=== PATIENT | female | born 1940 | race Caucasian/White ===

== ENCOUNTER 2017-06-21 07:30 | Inpatient (IN) ==
[2017-07-19] MEDS ORDERED: TRANEXAMIC ACID 1,000 MG in NS 100 ML IV ONE ×2 (06:00→07:00)
[2017-07-19] MEDS ORDERED: LIDOCAINE 1% (10mg/ml) 2mL INJ PF SDV ID ONE (06:00)
[2017-07-19] MEDS ORDERED: MELOXICAM 15 MG TABLET PO ONE (06:00)
[2017-07-19] MEDS ORDERED: METOCLOPRAMIDE 10mg/2ml INJECTION IVP ONE (06:00)
[2017-07-19] MEDS ORDERED: NOZIN NASAL SWAB NAS ONE ×2 (06:00→17:06)
[2017-07-19] MEDS ORDERED: ONDANSETRON 4 MG/2 ML INJECTION IVP ONE (06:00)
[2017-07-19] MEDS ORDERED: FAMOTIDINE PB 20 MG/50 ML BAG IV ONE (06:00)
[2017-07-19] MEDS ORDERED: ACETAMINOPHEN 500 MG TABLET PO ONE (06:00)
[2017-07-19] MEDS ORDERED: EPINEPHrine PF 0.25 MG, BUPIVACAINE 0.25% PF 30 ML, MORPHINE SULFATE 15 MG, KETOROLAC I... OPSITE ONE (08:00)
--- OUTSIDE RECORDS SUMMARY | 2017-07-19 10:23 | External Medical Summary | Summary of Care ---
:1940 Author Name Vladimir Mireles Address [address] [facility] Unavailable [place], [place] [id number] Care Team Providers Name Role Phone Azam Stokes M.D. Unavailable Unavailable Renaldo Hollis, Froylan Unavailable Unavailable Azam Stokes Primary Care Provider Unavailable Unavailable Unavailable Unavailable Functional Status Functional Status Health Issues Name Dates Details Functional status health issues are not documented Status: Cognitive Status Health Issues Name Dates Details Cognitive status health issues are not documented Status: Problems Name Dates Details Lower back pain (724.2, M54.5) Status: Active Joint pain, knee (719.46, M25.569) Status: Active Ankle joint pain (719.47, M25.579) Status: Active Memory loss (780.93, R41.3) Status: Active Involuntary trembling (781.0, R25.1) Status: Active Abnormal gait (781.2, R26.9) Status: Active Urinary incontinence (788.30, R32) Status: Active Anemia (285.9, D64.9) Status: Active Osteoarthritis (715.90, M19.90) Status: Active Essential and other specified forms of tremor (333.1, R25.1) Status: Active Raynauds phenomenon (443.0, I73.00) Status: Active Hypocalcemia (275.41, E83.51) Status: Active Muscle spasm (728.85, M62.838) Status: Active Osteoarthritis, localized, knee (715.36, M17.9) Status: Active Pre-operative exam (V72.84, Z01.818) Status: Active Bursitis of hip (726.5, M70.70) Status: Active Vitamin B12 deficiency (266.2, E53.8) Status: Active Arthralgia of multiple sites (719.49, M25.50) Status: Active Pre-operative general physical examination (V72.83, Z01.818) Status: Active Vaginal Discharge (623.5, N89.8) Status: Active Hematuria (599.70, R31.9) Status: Active Left knee pain (719.46, M25.562) Status: Active Alopecia (704.00, L65.9) Status: Active Frequent loose stools (787.91, R19.7) Status: Active Anxiety (300.00, F41.9) Status: Active Low back pain (724.2, M54.5) Status: Active Abdominal pain (789.00, R10.9) Status: Active Hip pain (719.45, M25.559) Status: Active Medications Name Dates Details Primidone 250 MG Oral Tablet TAKE 1/2 TABLET TWICE DAILY. Quantity: 15 Refills: 0 Azam Stokes M.D. Started 28-Jun-2011 ActiveAcetaminophen-Codeine #3 300-30 MG Oral Tablet TAKE 1 TABLET BY MOUTH THREE TIMES DAILY FOR PAIN Quantity: 30 Refills: 0 Froylan Macario M.D. Started 03-Nov-2011 ActiveDiphenoxylate-Atropine 2.5-0.025 MG Oral Tablet TAKE 1 Q 8HRS PRN Quantity: 90 Refills: 0 Azam Stokes M.D. Started 12-Aug-2012 ActivePropranolol HCl ER 120 MG Oral Capsule Extended Release 24 Hour TAKE 1 CAPSULE DAILY. Quantity: 30 Refills: 4 Started 11-Jun-2013 ActiveClonazePAM 0.5 MG Oral Tablet TAKE 1 TABLET BY MOUTH EVERY 12 HOURS. MUST LAST 30 DAYS Quantity: 60 Refills: 0 Azam Stokes M.D. Started 26-Dec-2013 ActiveSpironolactone 25 MG Oral Tablet TAKE 1 TABLET DAILY. Quantity: 30 Refills: 3 Azam Stokes M.D. Started 26-Dec-2013 ActiveVoltaren 1 % Transdermal Gel APPLY 4 GM OF GEL TO AFFECTED AREA TWICE DAILY. DO NOT APPLY MORE THAN 16 GM DAILY TO ANY ONE AFFECTED JOINT. Quantity: 1 Refills: 4 Azam Stokes M.D. Started 26-Dec-2013 [id number] GM Tube Amitriptyline HCl - 25 MG Oral Tablet Take 1 tablet by mouth at bedtime Quantity: 30 Refills: 5 Azam Stokes M.D. Started 13-Jan-2014 ActiveViibryd 40 MG Oral Tablet Take one tablet daily Quantity: 30 Refills: 3 Azam Stokes M.D. Started 23-Jun-2013 ActiveAmitriptyline HCl - 50 MG Oral Tablet TAKE ONE TABLET BY MOUTH EVERY NIGHT AT BEDTIME Quantity: 30 Refills: 3 Azam Stokes M.D. Started Active Allergies and Adverse Reactions Name Dates Details No Known Drug Allergies Status: Active Past Medical History Name Dates Details History of Colon Cancer (V10.05) Status: Resolved History of Concussion (V15.52) Status: Resolved History of depression (V11.8, Z86.59) Status: Resolved History of fracture of hip (V15.51, Z87.81) Status: Resolved History of headache (V13.89, Z87.898) Status: Resolved History of sleep apnea (V13.89, Z87.898) Status: Resolved Procedures Procedure Dates Details History of Cholecystectomy History of Appendectomy History of Partial Colectomy History of Hysteroscopy Completed:23-Aug-2011 History of Hip Surgery History of Colonoscopy (Fiberoptic) History of Reported Hx Of Knee Replacement - Right Procedures not documented Immunization Name Dates Details Immunizations not documented Family History Unknown Family Member Name Dates Details Family history of Diabetes Mellitus (V18.0) Comments: Family History Status: Active Family history of Hypertension (V17.49) Comments: Family History Status: Active Family history of Reported Family History Of Heart Disease Comments: Family History Status: Active Family history of Colon Cancer (V16.0) Comments: Family History Status: Active Grandfather Name Dates Details Family history of Stroke Syndrome (V17.1) Status: Active Grandmother Name Dates Details Family history of Alzheimer Disease Status: Active Mother Name Dates Details Family history of (Female) Genital Cancer (V16.40) Status: Active Family history of Ovarian Cancer (V16.41) Status: Active Father Name Dates Details Family history of Acute Myocardial Infarction (V17.3) Status: Active Social History Name Dates Details Smoking StatusNever smoker Vital Signs Date Test Result Details No Known Vitals to report Results Date Description Value Details Results not documented Plan of Care Planned Observations Name Dates Details Planned Goals not documented Goal Planned Encounters Appointment; Provider: Miah Macias On 29-Jan-2012 11:00 Appointment; Provider: Benny Li On 23-Aug-2011 10:00 Instructions Instructions not documented Encounters Appointment; Paul Chavez On 04-Aug-2014 Encounter Diagnosis: Problem not documented 14:15 Appointment; Vladimir Domingo On 04-Aug-2014 Encounter Diagnosis: Problem not documented 13:30 Appointment; Azam tSokes On 26-Dec-2013 Encounter Diagnosis: Problem not documented 13:45 Appointment; Froylan Macario On 11-Dec-2013 Encounter Diagnosis: Problem not documented 12:30 Appointment; zAam Stokes On 22-Jul-2013 Encounter Diagnosis: Problem not documented 10:00 Appointment; Azam Stokes On 23-Jun-2013 Encounter Diagnosis: Problem not documented 14:15 Appointment; Miah Steven On 11-Jun-2013 Encounter Diagnosis: Problem not documented 13:15 Appointment; Miah Macias On 15-May-2013 Encounter Diagnosis: Problem not documented 13:15 Appointment; Froylan Macario On Encounter Diagnosis: Problem not documented 12:15 Appointment; Azam Stokes On Encounter Diagnosis: Problem not documented 09:45 Appointment; Azam Stokes On Encounter Diagnosis: Problem not documented 09:30 Appointment; Tomy Dela Cruz On 19-Feb-2013 Encounter Diagnosis: Problem not documented 13:45 Appointment; Froylan Macario On 25-Dec-2012 Encounter Diagnosis: Problem not documented 12:45 Appointment; Azam Stokes On 25-Dec-2012 Encounter Diagnosis: Problem not documented 11:45 Appointment; Azam Stokes On 18-Dec-2012 Encounter Diagnosis: Problem not documented 10:30 Appointment; Froylan Macario On 18-Dec-2012 Encounter Diagnosis: Problem not documented 09:30
[2017-07-19 11:00] VITALS: BMI 35.6
[2017-07-19] MEDS: NS 1,000 ML IV SCH ×3 (11:45→17:12)
[2017-07-19] MEDS ORDERED: CEFAZOLIN 1 G INJECTION IVP ONE (12:30)
[2017-07-19] MEDS ORDERED: VANCOMYCIN 1,000 MG INJECTION ONE (13:34)
--- NOTE | 2017-07-19 13:44 | Anesthesia Preoperative Report ---
Anesthesia Preoperative Record - Date and Time Date: 07/19/17 Preoperative Diagnosis: Lt TKA M17.12 Proposed Procedure: Left TOtal Knee NPO Since Date: 07/19/17 NPO Since Time: 00:00 Allergies/Adverse Reactions: Allergies Allergy/AdvReac Type Severity Reaction Status Date / Time naproxen Allergy Unknown patient Verified 06/07/17 13:15 denies midazolam AdvReac Intermediate LOST 3 Verified 06/07/17 13:15 WEEKS OF MEMORY - Vital Signs Vital Signs: Temperature 98.6 F 07/19/17 11:00 Pulse Rate 56 L 07/19/17 11:26 Respiratory Rate 17 07/19/17 11:00 Blood Pressure 132/64 07/19/17 11:00 Pulse Oximetry 96 07/19/17 11:00 Height and Weight: Height 5 ft 1.5 in Weight 87.1 kg Body Mass Index 35.6 - Medications Inpatient Medications: Current Medications Sodium Chloride (Normal Saline) 1,000 mls @ 50 mls/hr IV .Q20H DAVION Last Admin: 07/19/17 11:45 Dose: 50 mls/hr Sodium Chloride (Iv Flush) 10 - 80 ml IV PRN PRN PRN Reason: Flushing Home Medications: Home Medications Medication Instructions Recorded Confirmed Type Multivitamin [Multi-Day Vitamins] 1 tab PO DAILY #30 tab 03/06/16 07/19/17 History LORazepam [Lorazepam] 1 mg PO HS 05/17/17 07/19/17 History Lexapro (escitalopram) 10 mg tablet 10 mg PO DAILY tab 06/07/17 07/19/17 History colestipol 1 gram tablet 1 g PO BID 06/07/17 07/19/17 History Lactobacillus Acidophilus 1 each PO DAILY 07/13/17 07/19/17 History [Probiotic] Sulfamethox/Tmp [Bactrim Ds] 1 tab PO BID 07/13/17 07/19/17 History Primidone [Mysoline] 250 mg PO TID 07/19/17 07/19/17 History Is Patient on Beta Cadence?: No - Medical History Respiratory: Reports: Sleep Apnea (questionable) Gastrointestional: Reports: Morbid Obesity Neuro/Musculoskeletal: Reports: Other (essential tremor) Other History: Reports: Anesthesia Reactions (adverse reaction to versed) - Surgical History HEENT Surgeries: Reports: Eye Surgery (Dario cataract ext with IOL implant) GI Surgery/Treatments: Reports: Colon Resection (COLON CA) Musculoskeletal Surgery/Tx: Reports: Orthopedic Surgery (ORIF Lt hip), Total Knee Replacement (Rt TKA), Other (nerve decompression in knee) Anesthesia Reactions: None Hx Family Anesthesia Reaction: No History of Motion Sickness: No - Social History Smoking Status: Never smoker Substance Use Type: does not use - Pertinent Findings Laboratory: CBC and BMP 07/19/17 11:05 07/19/17 11:05 BMP 07/19/17 11:05 Sodium 142 Potassium 4.0 Chloride 109 H Carbon Dioxide 23 BUN 30.0 H Creatinine 1.3 H Glucose 95 Calcium 8.8 Liver Function 07/19/17 Range/Units 11:05 Total Bilirubin 0.40 (0.20-1.30) MG/DL AST 25 (14-36) U/L ALT 30 (9-52) U/L Alkaline Phosphatase 71 (38-126) U/L Albumin 4.1 (3.5-5.0) G/DL EKG: Sinus Bradycardia - Physical Exam Respiratory Exam: Present: lungs clear, bilateral breath sounds equal Cardiovascular Exam: Present: regular rate and rhythm, no murmur - Airway Assessment Mallampati Score: III TMD: 2 Fingerbreadths Neck Extension: fair Overall Assessment: may be difficult intubation - ASA ASA Score: 2 - Plan Anesthesia: Neuroaxial Regional/Trunk Block: Spinal - Discussion Discussion: Discussed risks/options/alternatives of anesthesia and questions answered. Patient consents. Nursing pain assessment noted. Present for Discussion: family member Attestation Statement: Prior to the delivery of any anesthetic medication, I examined the patient, developed the plan, obtained the patient's consent and discussed the risk and benefits of the procedure with the patient/guardian. - Additional Information Seen by Anesthesia: Yes
[2017-07-19] MEDS ORDERED: VANCOMYCIN 1,000 MG INJECTION IAR ONE (14:38)
[2017-07-19] MEDS ORDERED: HYDROMORPHONE 2 MG/ML INJECTION ONE (15:21)
--- NOTE | 2017-07-19 15:47 | Operative Note ---
- Procedure Preoperative Diagnosis: Left knee primary degenerative joint disease Postoperative Diagnosis: Same as preoperative diagnosis. Surgeon: Mike Smith MD Robot Designer: Earnest Melendez Complications: None. Anesthesia: Spinal. Estimated Blood Loss: See Anesthesia Record. Fluids: Please see Anesthesia Record. Description of Procedure: Mrs. De La Cruz and her left knee were identified and marked in the preoperative holding area. She was brought back to the operating suite after a saphenous nerve block was placed in the preoperative holding area. Spinal anesthetic was administered and she was placed supine on the operating table. The left lower extremity was prepped and draped in my normal sterile fashion. Timeout was performed. The [employer] robot was used during the surgery. She had a varus deformity with hyperextension of 4 degrees. A standard anterior midline incision followed by medial parapatellar arthrotomy was performed. Anterior fat pad and meniscus were removed. The patella was resurfaced to a size 29. Tibial and femoral arrays were placed both within the original incision. Checkpoints were then placed both in the femur and the tibia. The bone was then registered with the [employer] robot. Osteophytes were removed and gaps were captured both 90 and 0 with correction. Because of her hyperextension we manipulated the components using the software to obtain 16 mm gap in extension and 80 mm gaps in flexion. The [employer] robotic arm was then used to assist with the bone cuts. Posterior osteophytes and remaining meniscus were removed. Trial components were placed. We used a 4 femur and a 3 tibia with a 9 mm spacer. She tracked well and was well balanced throughout range of motion. The leg was exsanguinated and the tourniquet inflated to 250 mmHg. The bone was prepared for cementing and components were cemented into place and allowed to cure in extension. The tourniquet was let down and hemostasis obtained with electrocautery. The knee was ranged one more time to ensure good stability, balance and patellar tracking. 1 g of vancomycin powder was then placed into the knee joint. The capsulotomy was then closed with #1 Vicryl. I then left my administrative services assistant to close the subcutaneous tissue with 2-0 Vicryl. Running 4-0 Monocryl will be used in the subcuticular layer. Dermabond will be used on the skin followed by sterile dressing. After drapes are removed patient will be taken to recovery room under the care of anesthesia.
[2017-07-19] MEDS ORDERED: ROPIVACAINE 0.5% (5mg/ml) 30ml INJ ONE (16:11)
--- NOTE | 2017-07-19 16:33 | Anesthesia Procedure Note ---
Peripheral Nerve Blockade - Procedure Physician: Miah Smith MD Date: 07/19/17 Surgical Procedure: Left Total Knee Replacement Discussion: Discussed risks/options/alternatives of anesthesia and questions answered. Patient consents. Nursing pain assessment noted. Block Start: 16:21 Block Stop: 16:24 Blocked Employed: Adductor Canal Indication: Post-Operative Pain Approach: Left Side Confirmed Position: Supine Patient: Consent, Risks/Benefits Discussed, Informed, Post Block Act. Discussed IV Sedation: No Sedation: Awake Initial Vital Signs: Temperature 98.6 F 07/19/17 11:00 Temperature Source Oral 07/19/17 11:00 Pulse Rate 56 L 07/19/17 11:00 Respiratory Rate 17 07/19/17 11:00 Blood Pressure 132/64 07/19/17 11:00 Blood Pressure Mean 86 07/19/17 11:00 Blood Pressure Position Sitting 07/19/17 11:00 Pulse Oximetry 96 07/19/17 11:00 Oxygen Delivery Method 07/19/17 11:00 Post Vital Signs: Temperature 98.6 F 07/19/17 11:00 Pulse Rate 56 L 07/19/17 16:07 Respiratory Rate 15 07/19/17 16:07 Blood Pressure 132/64 07/19/17 11:00 Pulse Oximetry 96 07/19/17 16:07 Initial Pain Pain Score: 0 Post Block Pain Score: 0 Prep: Chlorhexadine/ETOH Ultrasound Used?: Yes - Injectate Ropivacaine (%): 0.5 Ropivacaine (mL): 20 Was Epi 1:200,000 Used?: No Injection: Injection made incrementally with constant monitoring and aspiration every ml
--- NOTE | 2017-07-19 16:36 | Anesthesia Postoperative Note ---
- Date and Time Date: 07/19/17 Time: 16:36 - Status Patient Participated in Evaluation: Patient Participated in Person Vital Signs: Temperature 98.3 F 07/19/17 16:12 Pulse Rate 55 L 07/19/17 16:12 Respiratory Rate 12 07/19/17 16:12 Blood Pressure 149/68 H 07/19/17 16:12 Pulse Oximetry 93 07/19/17 16:12 Respiratory Function: Airway Patent Cardiovascular Function: Regular Pulse EKG: Sinus Rhythm Mental Status: Alert and Oriented Unable to Assess Pain Due to: Patient Sleeping Hydration: IV Infusing Complications During Recover: None Apparent - Follow-Up Instructions Instructions: Per Surgeon
[2017-07-19] MEDS ORDERED: LORazepam 1 MG TABLET PO PRN (17:06)
[2017-07-19] MEDS ORDERED: DiphenhydrAMINE 25 MG CAPSULE PO PRN (17:06)
[2017-07-19] MEDS ORDERED: DiphenhydrAMINE 50 MG/ML INJECTION IVP PRN (17:06)
[2017-07-19] MEDS ORDERED: ONDANSETRON 4 MG/2 ML INJECTION IVP PRN (17:06)
[2017-07-19] MEDS: ACETAMINOPHEN 325 MG TABLET PO SCH ×2 (17:08→23:05)
[2017-07-19] MEDS ORDERED: SALINE FLUSH 10ml SYRINGE IV PRN (20:41)
[2017-07-19] MEDS ORDERED: SENNOSIDES 8.6 MG TABLET PO SCH (21:00)
[2017-07-19] MEDS ORDERED: DEXAMETHASONE 4 MG/ML INJECTION IVP SCH (22:00)
[2017-07-19] MEDS: PRIMIDONE 250 MG TABLET PO SCH (22:58)
[2017-07-19] MEDS: ASPIRIN *EC* 81 MG TABLET PO SCH (23:03)
[2017-07-19] MEDS: TRIHEXYPHENIDYL 2 MG TABLET PO SCH (23:05)
[2017-07-19] MEDS: COLESTIPOL 1 G TABLET PO SCH (23:06)
[2017-07-19] MEDS: DOCUSATE SODIUM 100 MG CAPSULE PO SCH (23:14)
[2017-07-19] MEDS: NOZIN NASAL SWAB NAS SCH (23:15)
[2017-07-19] MEDS: DEXAMETHASONE INJ 10 MG in NS 50 ML IV SCH (23:16)
--- NOTE | 2017-07-19 23:35 | Consult Note ---
<Kenny Alba - Last Filed: 07/19/17 23:29> Consult Information - Data of Consult Consult date: 07/19/17 Requesting Physician: Miah Smith MD Primary Care Provider: Yue Ortiz MD Family Provider: Yue Ortiz MD - Consult Narrative Reason for consult: bradycardia History of present illness: Pleasant 76 y/o WF underwent successful Left TKA today by Dr Smith. She was evaluated preop by anesthesia and tells me recently has not been ill. Nursing notified me that he PA for Dr Smith wanted me to see the patient b/c she has been bradycardic. She reportedly had been in the 40s and nursing described SB with 1st deg AVB on tele. Pt admits to some n/v earlier this eening about 7 pm x 2 that is now resolved but denies syncope presyncope and has been taking Inderal LA for "years" She last took a dose yesterday. Review of anesthesia records indicates this may not have been a known preop med. She takes this for essential tremor. She sees neurology for this therapy, was last seen 6 weeks ago. She also may have had some right sided facial droop around 6 pm lasting 30 seconds noted by her son. He notified nursing but they didn't find a difference. Patient thinks she is speaking more slowly than usual but she usually does speak slowly. She denies focal weakness otherwise and her pain is well controlled right now. She denies hx cardiac issues, no known hx of TIA or stroke or CHF. [facility] Patient Stated Medical History Sleep Apnea Yes: questionable Other GI Yes: hx diverticulitis; currently bowel incontinence; Hx Incontinence Yes: ADULT BRIEF WORN Hx Urinary Tract Infection Yes: states currently has UTI, on Keflex Other Hematologic Yes: states is having prolonged bleeding with minor scrapes (several days) Osteoarthritis Yes Other Musculoskeletal Yes: essential tremor Anesthesia Reactions Yes: adverse reaction to versed Blood Transfusions Yes Depression Yes Post Menopausal Yes Clinic Medical History (Last Reviewed 05/16/17 @ 13:44 by Miah Smith MD) Anxiety (Chronic Medical) Arthritis (Chronic Medical) Cataract (Chronic Medical) Depression (Chronic Medical) GERD (gastroesophageal reflux disease) (Chronic Medical) Tremor (Chronic Medical) Colon cancer (Resolved Medical) Surgical History: cataract, hemicolectomy, appendectomy, cholecystectomy, Lt hip fx, rt TKA,. Lt leg nerve decompression Family History: Family History (Last Reviewed 05/16/17 @ 13:44 by Miah Smith MD) Father HTN (hypertension) Heart attack Diabetes Mother Ovarian cancer - Social History Smoking status: Never smoker Review of Systems All systems PM: 10-point ROS was reviewed, no additional remarkable complaints except Medications Home Medications Medication Instructions Recorded Confirmed Type Multivitamin [Multi-Day Vitamins] 1 tab PO DAILY #30 tab 03/06/16 07/19/17 History Lexapro (escitalopram) 10 mg tablet 10 mg PO DAILY tab 06/07/17 07/19/17 History colestipol 1 gram tablet 1 g PO BID 06/07/17 07/19/17 History Lactobacillus Acidophilus 1 each PO DAILY 07/13/17 07/19/17 History [Probiotic] Sulfamethox/Tmp [Bactrim Ds] 1 tab PO BID 07/13/17 07/19/17 History Primidone [Mysoline] 250 mg PO TID 07/19/17 07/19/17 History Allergies Allergy/AdvReac Type Severity Reaction Status Date / Time naproxen Allergy Unknown patient Verified 06/07/17 13:15 denies midazolam AdvReac Intermediate LOST 3 Verified 06/07/17 13:15 WEEKS OF MEMORY Exam Vital Signs: Temperature 96.7 F L 07/19/17 19:12 Pulse Rate 50 L 07/19/17 20:12 Respiratory Rate 18 07/19/17 17:34 Blood Pressure 127/65 07/19/17 19:12 Pulse Oximetry 100 07/19/17 21:54 Telemetry Rhythm: Sinus Bradycardia, First Degree AV Block Height/Weight/BMI: Height 1.56 m Weight 87.1 kg Body Mass Index 35.6 - Constitutional Present: no acute distress, obese - Routine HEENT Exam Head: Present: normocephalic (wearing some O2) - Routine Respiratory Exam Present: CTA bilaterally. Absent: accessory muscle use, respiratory distress - Routine Cardiovascular Exam Present: S1, S2, no murmur, bradycardia - Routine Abdominal Exam Present: soft, normoactive bowel sounds, non distended, non tender - Routine Extremities Exam Present: edema. Absent: cyanosis, clubbing - Routine Neurological Exam Present: alert, oriented X3, CN II-XII intact speech is slow but fluent. no facial asymmetry noted. arms equally strong with minimal tremor Results - Labs CBC & Chem 7: 07/19/17 11:05 07/19/17 11:05 Assessment and Plan (1) Bradycardia Status: Acute (2) Renal insufficiency Status: Acute (3) Short bowel syndrome Status: Acute (4) Essential tremor Status: Acute (5) [place] (obstructive sleep apnea) Status: Acute (6) Obesity (BMI 30-39.9) Status: Acute (7) Primary osteoarthritis of left knee Status: Acute (8) Slow rate of speech Status: Acute Assessment and Plan: Bradycardia appears asymptomatic and probably related to propranolol plus perhaps nausea induced vagal bradycardia. She is mildly hypoxic that I suspect is atelectasis and have encouraged IS that she is doing. XRay could be ordered in AM if persistent hypoxia. Her renal function is noted, with creat at 1.3, will give 500 cc NS tonight and repeat labs in am. As far as possible facial droop and speech slowed, I did not find focal deficits and suspect from pain meds nausea etc. She takes a number of meds for tremor as well. Will leave further possible TIA workup to medical team in AM but do not think workup at this time indcated. DVT Prophylaxis: SCD's, Lovenox Resuscitation Status: Full Code Hospital Course Summary Disclaimer: The visit summary below is not to be considered part of the above Progress Note. <Moisés Rueda - Last Filed: 07/20/17 20:27> Consult Information - Data of Consult Requesting Physician: Miah Smith MD Primary Care Provider: Yue Ortiz MD Family Provider: Yue Ortiz MD [facility] Patient Stated Medical History Sleep Apnea Yes: questionable Other GI Yes: hx diverticulitis; currently bowel incontinence; Hx Incontinence Yes: ADULT BRIEF WORN Hx Urinary Tract Infection Yes: states currently has UTI, on Keflex Other Hematologic Yes: states is having prolonged bleeding with minor scrapes (several days) Osteoarthritis Yes Other Musculoskeletal Yes: essential tremor Anesthesia Reactions Yes: adverse reaction to versed Blood Transfusions Yes Depression Yes Post Menopausal Yes Clinic Medical History (Last Reviewed 05/16/17 @ 13:44 by Miah Smith MD) Anxiety (Chronic Medical) Arthritis (Chronic Medical) Cataract (Chronic Medical) Depression (Chronic Medical) GERD (gastroesophageal reflux disease) (Chronic Medical) Tremor (Chronic Medical) Colon cancer (Resolved Medical) Family History: Family History (Last Reviewed 05/16/17 @ 13:44 by Miah Smith MD) Father HTN (hypertension) Heart attack Diabetes Mother Ovarian cancer Exam Vital Signs: Temperature 97.8 F 07/20/17 12:21 Pulse Rate 62 07/20/17 12:21 Respiratory Rate 20 07/20/17 12:21 Blood Pressure 104/50 07/20/17 12:21 Pulse Oximetry 97 07/20/17 12:21 Height/Weight/BMI: Height 5 ft 1.5 in Weight 89.6 kg Body Mass Index 35.6 Results - Labs CBC & Chem 7: 07/20/17 04:43 07/20/17 04:43 Assessment and Plan (1) Bradycardia Status: Acute (2) Primary osteoarthritis of left knee Status: Acute (3) Obesity (BMI 30-39.9) Status: Acute (4) [place] (obstructive sleep apnea) Status: Acute (5) Essential tremor Status: Acute (6) Short bowel syndrome Status: Acute (7) Renal insufficiency Status: Acute (8) Slow rate of speech Status: Acute Hospital Course Summary Disclaimer: The visit summary below is not to be considered part of the above Progress Note. Hospital Course: 07/20/17 20:26 [address] and agreed with Dr. Dahl's full consultation note and have included a follow-up note independently
[2017-07-19] MEDS ORDERED: NS 1,000 ML IV SCH (23:45)
[2017-07-20] MEDS: CEFAZOLIN 2 G in NS 100 ML IV SCH ×2 (01:45→09:27)
[2017-07-20] MEDS: NOZIN NASAL SWAB NAS SCH ×2 (06:00→14:24)
[2017-07-20] MEDS: DEXAMETHASONE INJ 10 MG in NS 50 ML IV SCH (06:00)
[2017-07-20] MEDS ORDERED: ESCITALOPRAM 10 MG TABLET PO SCH (09:00)
[2017-07-20] MEDS ORDERED: PROPRANOLOL LA 120 MG CAPSULE PO SCH (09:00)
--- NOTE | 2017-07-20 09:16 | XRay Report ---
EXAM: XR knee LT 2V DATE: 07/19/2017 5:06 PM ENCOUNTER: Initial INDICATION: postoperative image COMPARISON: 05/16/2017, 03/13/2016 TECHNIQUE: AP and lateral views of the knee were obtained. FINDINGS: Postoperative changes of recent left total knee arthroplasty with associated surrounding bandaging and stabilization padding in place which limits fine osseous and soft tissue detail. There appears to be a wound VAC in place. The hardware components appear appropriately aligned without evidence of acute hardware complication. No periprosthetic fracture. Likely postoperative joint effusion. IMPRESSION: Postoperative changes of recent left total knee arthroplasty without evidence of acute hardware complication or periprosthetic osseous abnormality. .
[2017-07-20] MEDS: DOCUSATE SODIUM 100 MG CAPSULE PO SCH (09:25)
[2017-07-20] MEDS: Oxycodone *IR* 5 MG TABLET PO PRN ×2 (09:26→12:17)
[2017-07-20] MEDS: ACETAMINOPHEN 325 MG TABLET PO SCH ×2 (09:26→12:17)
[2017-07-20] MEDS: ASPIRIN *EC* 81 MG TABLET PO SCH (09:26)
[2017-07-20] MEDS: POLYETHYL GLYCOL 3350 17gm PACKET PO SCH ×2 (09:27→09:41)
--- NOTE | 2017-07-20 09:28 | Orthopedic Progress Note ---
Date: Subjective/Severity of Illness: Mrs. De La Cruz is feeling okay. Her pain is controlled. She was bradycardic last night, hospitalist consulted. This AM her pulse is 58 and she denies CP, palpitations, lightheadedness, dizziness. Orthopedic Objective PO Vital signs: Temperature 97.4 F 07/20/17 04:00 Pulse Rate 58 L 07/20/17 04:00 Respiratory Rate 22 07/20/17 04:00 Blood Pressure 102/55 07/20/17 04:00 Pulse Oximetry 93 07/20/17 05:45 Height and Weight: Height 5 ft 1.5 in Weight 197 lb 8.547 oz Body Mass Index 35.6 - Constitutional General Appearance: Present: alert, orientated x3, no acute distress - Respiratory Exam Present: non-labored - Cardiovascular Exam Present: pedal pulses intact Capillary Refill: < 2-3 Seconds - Abdominal Exam Absent: tenderness - Extremities Exam Extremities: Present: pulses intact, calf tenderness - Knee Exam Knee Exam: Present: effusion, painful ROM - Hip Exam Hip Exam: Present: unequal leg length - Surgical Site Incision: Mepilex dressing intact, dressing intact - Integumentary Exam Present: pink, warm, dry - Lymphatic Lymphatic: Absent: lymphedema - Neurological Exam Present: intact to light touch - Psychiatric Exam Present: normal affect - Labs Result Diagrams: 07/20/17 04:43 07/20/17 04:43 Abnormal lab results 07/19/17 07/19/17 07/20/17 Range/Units 11:05 11:05 04:43 RBC 3.82 L 3.23 L (4.00-5.20) M/MM3 Hgb 10.3 L D (12-16) GM/DL Hct 32.9 L D (36-46) % MCV 101.3 H 101.9 H (80-100) UM3 Plt Count 120 L (130-400) T/MM3 Chloride 109 H (98-107) MEQ/L Carbon Dioxide (22-30) MEQ/L BUN 30.0 H (7-17) MG/DL Creatinine 1.3 H (0.7-1.2) MG/DL Calcium (8.4-10.2) MG/DL 07/20/17 Range/Units 04:43 RBC (4.00-5.20) M/MM3 Hgb (12-16) GM/DL Hct (36-46) % MCV (80-100) UM3 Plt Count (130-400) T/MM3 Chloride 113 H (98-107) MEQ/L Carbon Dioxide 20 L (22-30) MEQ/L BUN 27.0 H (7-17) MG/DL Creatinine (0.7-1.2) MG/DL Calcium 8.0 L D (8.4-10.2) MG/DL H & H 07/19/17 07/20/17 Range/Units 11:05 04:43 Hgb 12.6 10.3 L D (12-16) GM/DL Hct 38.7 32.9 L D (36-46) % Coagulation 07/19/17 Range/Units 11:05 INR 1.03 (0.99-1.21) Orthopedic Assessment and Plan (1) Bradycardia Status: Acute (2) Primary osteoarthritis of left knee Status: Acute Assessment and Plan: PT/OT for mobility continue pain control and bowel management health and social care teacher for placement ASA for DVT prevention - Anticoagulation Therapy Anticoagulation: ASA 81 mg PO BID x6 weeks Hospital Course Summary Disclaimer: The visit summary below is not to be considered part of the above Progress Note.
[2017-07-20] MEDS: COLESTIPOL 1 G TABLET PO SCH (09:37)
[2017-07-20] MEDS: TRIHEXYPHENIDYL 2 MG TABLET PO SCH (09:38)
[2017-07-20] MEDS: PRIMIDONE 250 MG TABLET PO SCH (09:39)
[2017-07-20 10:39] VITALS: O2SAT 97
[2017-07-20 12:22] VITALS: BP 104/50; PULSE 62; RESP 20; TEMP 97.8
--- NOTE | 2017-07-20 12:57 | Extended Care Facility Orders ---
Admission Orders Admit to:: Detention Allergies/Adverse Reactions: Allergies naproxen Allergy (Unknown, Verified 06/07/17 13:15) patient denies midazolam Adverse Reaction (Intermediate, Verified 06/07/17 13:15) LOST 3 WEEKS OF MEMORY Admitting Diagnosis: Lt TKA M17.12 Admitting Physician: Miah Smith MD Attending Physician: Miah Smith MD Code Status: Full Code Anticiapted Length of Stay: 30 days or less Rehab Potential: good Rehab Prognosis: good Diet: 07/20/17 Breakfast Regular Diet [DIET] Diet Modifications: May use Facility Protocol or Standing Orders: Yes May have flu vaccine: Yes Evaluations/Treatment: PT, OT Detention Certification: I certify that SNF services are required to be given on an Inpatient basis because of the patients need for [facility] care on a continuing basis for the condition(s) for which he/she received inpatient hospital services prior to his/her transfer to the SNF. SNF inpatient care is necessary for the following reasons Indication for Detention: Postop Assessment Care - Additional Information In Event of Arrest: Start CPR,call 911,send patient to the ER Referrals: Miah Smith MD [Physician] - 08/13/17 3:15 pm
--- NOTE | 2017-07-20 13:00 | Discharge Summary ---
Orthopedic Discharge Info Date of admission: 07/19/17 10:17 Primary care physician: Yue Ortiz MD Attending Physician: Miah Smith MD Consults: 07/19/17 IRU Screening [Inpatient Rehab Screening] [CONS] Routine Screen requested by:: Family/Patient Comment Text:: L TKA; POSSIBLE DC 07/2007/19/17 10:58 Consult to Anesthesiology [CONS] Routine Consulting Provider: RITA Navarro Reason For Exam: Preoperative Assessment 07/19/17 17:06 Case Management Consult [CONS] Routine Reason For Exam: Discharge Planning DME-Walker [CONS] Routine Height: 5 ft 1.5 in Weight: 192 lb 0.362 oz Comment: change dressing in 2 weeks Total Joint Outpatient Therapy [CONS] Routine Comment: change dressing in 2 weeks 07/19/17 17:10 Doctor [Physician Consult] [CONS] Routine Consulting Provider: Aaliyah Harris Reason For Exam: [facility]- SNF Ordering Provider has Notified Secondary Special Education Teacher: Yes - Discharge Diagnosis (1) Bradycardia Status: Acute (2) Primary osteoarthritis of left knee Status: Acute - Procedures Procedures: Procedures Left TKA - Laboratory Result Diagrams: 07/20/17 04:43 07/20/17 04:43 Laboratory: Abnormal lab results 07/20/17 07/20/17 Range/Units 04:43 04:43 RBC 3.23 L (4.00-5.20) M/MM3 Hgb 10.3 L D (12-16) GM/DL Hct 32.9 L D (36-46) % MCV 101.9 H (80-100) UM3 Plt Count 120 L (130-400) T/MM3 Chloride 113 H (98-107) MEQ/L Carbon Dioxide 20 L (22-30) MEQ/L BUN 27.0 H (7-17) MG/DL Calcium 8.0 L D (8.4-10.2) MG/DL H & H 07/19/17 07/20/17 Range/Units 11:05 04:43 Hgb 12.6 10.3 L D (12-16) GM/DL Hct 38.7 32.9 L D (36-46) % Coagulation 07/19/17 Range/Units 11:05 INR 1.03 (0.99-1.21) Orthopedic Discharge HPI - HPI Comments This patient was admitted for elective surgical tx of end stage degenerative joint disease that failed to respond to conservative treatment. Further details of this is found in the admission H&P. Orthopedic Hospital Course Ongoing care required?: No - Postoperative Anemia patient received IVF, labs monitored daily, no intervention required, HGB drop- acceptable Discharge Plan - Med Rec/Dispo Referrals/Follow Up: Miah Smith MD [Physician] - 08/13/17 3:15 pm Alexuvdelia Instructions: [facility] Postop Instructions Prescriptions: New Oxycodone *IR* [Roxicodone *Ir*] 5 - 15 mg PO Q3H PRN #60 tab PRN Reason: Breakthrough Pain Acetaminophen [Tylenol] 650 mg PO QID #100 tab Aspirin *EC* [Ecotrin] 81 mg PO BID #84 tab Continue Multivitamin [Multi-Day Vitamins] 1 tab PO DAILY #30 tab LORazepam [Lorazepam] 1 mg PO HS Primidone [Mysoline] 250 mg PO TID Sulfamethox/Tmp [Bactrim Ds] 1 tab PO BID Lactobacillus Acidophilus [Probiotic] 1 each PO DAILY Lexapro (escitalopram) 10 mg tablet 10 mg PO DAILY tab Inderal LA (propranolol ER) 120 mg capsule,24 hr 120 mg PO DAILY #90 cap colestipol 1 gram tablet 1 g PO BID trihexyphenidyl 2 mg tablet 1 mg PO BID #30 tab - Disposition 03 To SNU Not [facility] ([facility])
[2017-07-20] MEDS: NS 1,000 ML IV SCH (13:56)
[2017-07-20] MEDS ORDERED: SENNOSIDES 8.6 MG TABLET PO PRN (16:14)
--- NOTE | 2017-07-20 20:22 | Consult Note ---
Consult Information - Data of Consult Consult date: 07/20/17 Requesting Physician: Miah Smith MD Primary Care Provider: Yue Ortiz MD Family Provider: Yue Ortiz MD - Consult Narrative History of present illness: Pleasant 76 y/o WF underwent successful Left TKA today by Dr Smith. She was evaluated preop by anesthesia and tells me recently has not been ill. Nursing notified me that he PA for Dr Smith wanted me to see the patient b/c she has been bradycardic. She reportedly had been in the 40s and nursing described SB with 1st deg AVB on tele. Pt admits to some n/v earlier this eening about 7 pm x 2 that is now resolved but denies syncope presyncope and has been taking Inderal LA for "years" She last took a dose yesterday. Review of anesthesia records indicates this may not have been a known preop med. She takes this for essential tremor. She sees neurology for this therapy, was last seen 6 weeks ago. She also may have had some right sided facial droop around 6 pm lasting 30 seconds noted by her son. He notified nursing but they didn't find a difference. Patient thinks she is speaking more slowly than usual but she usually does speak slowly. She denies focal weakness otherwise and her pain is well controlled right now. She denies hx cardiac issues, no known hx of TIA or stroke or CHF. [facility] Patient Stated Medical History Sleep Apnea Yes: questionable Other GI Yes: hx diverticulitis; currently bowel incontinence; Hx Incontinence Yes: ADULT BRIEF WORN Hx Urinary Tract Infection Yes: states currently has UTI, on Keflex Other Hematologic Yes: states is having prolonged bleeding with minor scrapes (several days) Osteoarthritis Yes Other Musculoskeletal Yes: essential tremor Anesthesia Reactions Yes: adverse reaction to versed Blood Transfusions Yes Depression Yes Post Menopausal Yes Clinic Medical History (Last Reviewed 05/16/17 @ 13:44 by Miah Smith MD) Anxiety (Chronic Medical) Arthritis (Chronic Medical) Cataract (Chronic Medical) Depression (Chronic Medical) GERD (gastroesophageal reflux disease) (Chronic Medical) Tremor (Chronic Medical) Colon cancer (Resolved Medical) Surgical History: cataract, hemicolectomy, appendectomy, cholecystectomy, Lt hip fx, rt TKA,. Lt leg nerve decompression Family History: Family History (Last Reviewed 05/16/17 @ 13:44 by Miah Smith MD) Father HTN (hypertension) Heart attack Diabetes Mother Ovarian cancer - Social History Current residence: Apartment/Private Home Review of Systems - Constitutional Constitutional: Present: as per HPI - EENMT Eyes: Absent: blurry vision, change in vision, diplopia Balance: Absent: vertigo, falling to one side - Cardiovascular Cardiovascular: Absent: chest pain, palpitations, syncope, dyspnea on exertion - Respiratory Respiratory: Absent: dyspnea on exertion - Neurological Neurological: Absent: focal weakness, frequent falls, weakness Medications Home Medications Medication Instructions Recorded Confirmed Type Multivitamin [Multi-Day Vitamins] 1 tab PO DAILY #30 tab 03/06/16 07/19/17 History Lexapro (escitalopram) 10 mg tablet 10 mg PO DAILY tab 06/07/17 07/19/17 History colestipol 1 gram tablet 1 g PO BID 06/07/17 07/19/17 History Lactobacillus Acidophilus 1 each PO DAILY 07/13/17 07/19/17 History [Probiotic] Sulfamethox/Tmp [Bactrim Ds] 1 tab PO BID 07/13/17 07/19/17 History Primidone [Mysoline] 250 mg PO TID 07/19/17 07/19/17 History Allergies Allergy/AdvReac Type Severity Reaction Status Date / Time naproxen Allergy Unknown patient Verified 06/07/17 13:15 denies midazolam AdvReac Intermediate LOST 3 Verified 06/07/17 13:15 WEEKS OF MEMORY Exam Vital Signs: Temperature 97.8 F 07/20/17 12:21 Pulse Rate 62 07/20/17 12:21 Respiratory Rate 20 07/20/17 12:21 Blood Pressure 104/50 07/20/17 12:21 Pulse Oximetry 97 07/20/17 12:21 Height/Weight/BMI: Height 5 ft 1.5 in Weight 89.6 kg Body Mass Index 35.6 - Constitutional Present: well nourished, well developed - Routine HEENT Exam Eye: Present: EOMI ENT: Present: mucous membranes moist, dentition normal - Routine Respiratory Exam Present: CTA bilaterally. Absent: wheezes - Routine Cardiovascular Exam Present: RRR, S1, S2, murmur - Routine Abdominal Exam Present: soft, normoactive bowel sounds, non distended. Absent: tenderness - Routine Extremities Exam Present: normal capillary refill - Routine Skin Exam Present: dry, warm - Routine Neurological Exam Present: alert, oriented X3, CN II-XII intact - Routine Psychiatric Exam Present: normal affect Comments: Right knee in icepack and brace Results - Labs CBC & Chem 7: 07/20/17 04:43 07/20/17 04:43 Assessment and Plan (1) Bradycardia Status: Acute (2) Primary osteoarthritis of left knee Status: Acute (3) Obesity (BMI 30-39.9) Status: Acute (4) [place] (obstructive sleep apnea) Status: Acute (5) Essential tremor Status: Acute (6) Short bowel syndrome Status: Acute (7) Renal insufficiency Status: Acute (8) Slow rate of speech Status: Acute Assessment and Plan: I have read and agreed with Dr. Dahl's assessment and follow the patient this afternoon. Bradycardia appears asymptomatic and probably related to propranolol plus perhaps nausea induced vagal bradycardia. She continues to be asymptomatic and the propanolol has the additional benefit for her of reduction of her essential tremor. For the short term of her minor bradycardia I would not interfere with the long-term neurological benefit. At the time of discharge medications can remain unchanged No further facial droop or neurological symptoms outside the benign essential tremor that she has were seen. As time I believe she's fit for discharge to follow-up Dr. Smith. My appreciation to him for this consultation on this very nice patient Hospital Course Summary Disclaimer: The visit summary below is not to be considered part of the above Progress Note.
[2017-07-21] MEDS ORDERED: BISACODYL 10 MG SUPPOSITORY RECTALLY SCH (20:00)
== END 2017-07-20 15:00 | DRG 470 ==
LOC: SRG 07-19 10:17
PROVIDERS: ADMIT Orthopaedic Surgery; ATTEND Orthopaedic Surgery